=== PATIENT | male | born 1960 | race Caucasian/White ===

== ENCOUNTER 2020-12-05 15:10 | Inpatient (IN) | payer OTHER ==
[~2020-12-05] VITALS: Ht 167.6 cm; Wt 67.1 kg
[~2020-12-05 15:10] MED LIST: AUGMENTIN 875-1 EACH PO; IBUPROFEN800 MG PO; PRILOSEC OTC20 MG PO; TAMIFLU75 MG PO
[2020-12-05 16:50] LABS: HEMOGLOBIN 12.6 gm/dl (14.0-17.5); RED BLOOD COUNT 3.24 M/UL (4.20-5.50); WHITE BLOOD COUNT 13.1 K/UL (4.5-11.0)
[2020-12-05 17:36] LABS: BUN/CREATININE RATIO 23 (0-10)
[2020-12-05] MEDS ORDERED: FOLIC ACID1 MG PO (20:51)
[2020-12-05] MEDS ORDERED: SODIUM BICARBO650 M1 PO (20:52)
[2020-12-05] MEDS ORDERED: PROTONIX40 MG PO (20:52)
[2020-12-05] MEDS ORDERED: MAGNESIUM250 MG PO (20:53)
[2020-12-05] MEDS ORDERED: COMBIVENT RESPIM4 GM INH (21:00)
[2020-12-05 21:55] LABS: HEMOGLOBIN 12.6 gm/dl (14.0-17.5); RED BLOOD COUNT 3.23 M/UL (4.20-5.50); WHITE BLOOD COUNT 12.8 K/UL (4.5-11.0)
[2020-12-05 22:14] LABS: BUN/CREATININE RATIO 21 (0-10)
[2020-12-06 06:50] LABS: BUN/CREATININE RATIO 19 (0-10)
[2020-12-06] MEDS ORDERED: SYMBICORT 80-10.2 GM INH (09:09)
[2020-12-06] MEDS ORDERED: PROAIR HFA8.5 GM INH (09:11)
[2020-12-06] MEDS ORDERED: B-COMPLEX PLUS1 EAC1 PO (09:13)
[2020-12-06] MEDS ORDERED: NICODERM CQ1 EAC1 TOP (09:16)
[2020-12-06 18:00] LABS: BUN/CREATININE RATIO 15 (0-10)
[2020-12-06] MEDS ORDERED: METOPROLOL SUC100 MG PO (20:50)
[2020-12-06] MEDS ORDERED: PAXIL CR25 MG PO (20:50)
[2020-12-06] MEDS ORDERED: ELIQUIS5 MG PO (20:50)
[2020-12-06] MEDS ORDERED: POTASSIUM99 M1 PO (20:53)
[2020-12-06] MEDS ORDERED: SEROQUEL100 MG PO (20:53)
[2020-12-06] MEDS ORDERED: CALCIUM CARBON600 MG PO (20:54)
[2020-12-06] MEDS ORDERED: TRELEGY ELLIPT1 EACH INH (21:01)
[2020-12-07 04:39] LABS: HEMOGLOBIN 10.5 gm/dl (14.0-17.5); RED BLOOD COUNT 2.77 M/UL (4.20-5.50); WHITE BLOOD COUNT 6.6 K/UL (4.5-11.0)
[2020-12-07 04:53] LABS: BUN/CREATININE RATIO 15 (0-10)
--- NOTE | 2020-12-07 06:12 | NUR ---
0564 DR FERNÁNDEZ AWARE OF AM PHOS LEVEL. ORDERS RECEIVED, SEE SEP.
[2020-12-08 01:26] LABS: HEMOGLOBIN 11.6 gm/dl (14.0-17.5); RED BLOOD COUNT 3.03 M/UL (4.20-5.50); WHITE BLOOD COUNT 5.4 K/UL (4.5-11.0)
[2020-12-08 02:10] LABS: BUN/CREATININE RATIO 17 (0-10)
--- NOTE | 2020-12-08 03:13 | NUR ---
0310 DR MOORE AWARE OF PT AM PHOS LEVEL. ORDERS PLACED.
[2020-12-09 05:17] LABS: HEMOGLOBIN 11.8 gm/dl (14.0-17.5); RED BLOOD COUNT 3.07 M/UL (4.20-5.50); WHITE BLOOD COUNT 6.2 K/UL (4.5-11.0)
[2020-12-09 05:43] LABS: BUN/CREATININE RATIO 19 (0-10)
[2020-12-10 04:42] LABS: HEMOGLOBIN 12.5 gm/dl (14.0-17.5); RED BLOOD COUNT 3.27 M/UL (4.20-5.50); WHITE BLOOD COUNT 7.4 K/UL (4.5-11.0)
[2020-12-10 05:01] LABS: BUN/CREATININE RATIO 11 (0-10)
[2020-12-11 05:36] LABS: HEMOGLOBIN 12.2 gm/dl (14.0-17.5); RED BLOOD COUNT 3.21 M/UL (4.20-5.50)
[2020-12-11 06:05] LABS: BUN/CREATININE RATIO 6 (0-10)
[2020-12-12 04:12] LABS: RED BLOOD COUNT 3.42 M/UL (4.20-5.50); WHITE BLOOD COUNT 7.9 K/UL (4.5-11.0)
[2020-12-12 04:58] LABS: BUN/CREATININE RATIO 9 (0-10)
[2020-12-13 05:20] LABS: RED BLOOD COUNT 3.18 M/UL (4.20-5.50); WHITE BLOOD COUNT 6.5 K/UL (4.5-11.0)
[2020-12-13 05:51] LABS: BUN/CREATININE RATIO 8 (0-10)
[2020-12-13] MEDS ORDERED: IPRAT-ALBUT 0.5-3 ML NEB (17:20)
[2020-12-13] MEDS ORDERED: FERROUS SULFAT325 M2 PO (17:20)
[2020-12-13] MEDS ORDERED: FOLIC ACID 1 MG1 MG PO (17:20)
[2020-12-13] MEDS ORDERED: AMLODIPINE BESYL5 MG PO (17:20)
[2020-12-13] MEDS ORDERED: VITAMIN B-1100 M1 PO (17:20)
--- NOTE | 2020-12-13 23:26 | NUR ---
1948 report called to [place] RN at [facility]. 2015 Called EMS for ambulance request, paperwork faxed. [id number] Called EMS for updated ETA, reports "should be any minute." [id number] EMS at bedside. Bedside report given, all questions answered.
== END 2020-12-13 23:30 | disposition short-term general hospital (02) | DRG 432 ==
LOC: ER1 15:10 → CCU 18:28 → CDU 18:28 → CCU 19:06
PROVIDERS: Internal Medicine; Preventive Medicine Occupational Medicine; ADMIT Family Medicine
DX: K70.10 Alcoholic hepatitis without ascites (principal); K85.20 Alcohol induced acute pancreatitis without necrosis or infection; J96.01 Acute respiratory failure with hypoxia; G93.41 Metabolic encephalopathy; F10.139 Alcohol abuse with withdrawal, unspecified; I50.32 Chronic diastolic (congestive) heart failure; E87.2 Acidosis; E72.20 Disorder of urea cycle metabolism, unspecified; R65.10 Systemic inflammatory response syndrome (SIRS) of non-infectious origin without acute organ dysfunction; N47.2 Paraphimosis; F10.129 Alcohol abuse with intoxication, unspecified; I10 Essential (primary) hypertension; I25.2 Old myocardial infarction; E87.6 Hypokalemia; E83.39 Other disorders of phosphorus metabolism; D50.9 Iron deficiency anemia, unspecified; I12.9 Hypertensive chronic kidney disease with stage 1 through stage 4 chronic kidney disease, or unspecified chronic kidney disease; E78.5 Hyperlipidemia, unspecified; J44.9 Chronic obstructive pulmonary disease, unspecified; R74.01 Elevation of levels of liver transaminase levels; D69.6 Thrombocytopenia, unspecified; Z20.822 Contact with and (suspected) exposure to COVID-19; Z86.16 Personal history of COVID-19; Z87.01 Personal history of pneumonia (recurrent); Z86.711 Personal history of pulmonary embolism; Z79.01 Long term (current) use of anticoagulants; Z72.0 Tobacco use; Y90.8 Blood alcohol level of 240 mg/100 ml or more
CPT/HCPCS: 0240U; 36415; 36600; 70450; 71045; 80048; 80053; 80076; 80307; 81001; 82009; 82140; 82550; 82553; 82803; 83540; 83550; 83605; 83690; 83735; 83874; 83880; 84100; 84132; 84484; 85025; 85027; 85049; 85610; 85652; 85730; 86140; 87040; 87086; 87449; 92526; 92610; 93005; 94640; 94664; 94760; 96374; 96375; 99285; G0480; J0610; J0696; J1170; J1650; J2060; J2185; J2405; J3411; J3475; J3480; J7030; J7050

== ENCOUNTER 2021-01-13 16:06 | Emergency (ER) | payer OTHER ==
[~2021-01-13 16:06] MED LIST changes: +AMLODIPINE BESYL5 MG PO; +B-COMPLEX PLUS1 EAC1 PO; +CALCIUM CARBON600 MG PO; +COMBIVENT RESPIM4 GM INH; +ELIQUIS5 MG PO; +FERROUS SULFAT325 M2 PO; +FOLIC ACID 1 MG1 MG PO; +FOLIC ACID1 MG PO; +IPRAT-ALBUT 0.5-3 ML NEB; +MAGNESIUM250 MG PO; +METOPROLOL SUC100 MG PO; +NICODERM CQ1 EAC1 TOP; +PAXIL CR25 MG PO; +POTASSIUM99 M1 PO; +PROAIR HFA8.5 GM INH; +PROTONIX40 MG PO; +SEROQUEL100 MG PO; +SODIUM BICARBO650 M1 PO; +SYMBICORT 80-10.2 GM INH; +TRELEGY ELLIPT1 EACH INH; +VITAMIN B-1100 M1 PO
[2021-01-13 16:48] LABS: HEMOGLOBIN 12.3 gm/dl (14.0-17.5); RED BLOOD COUNT 3.31 M/UL (4.20-5.50); WHITE BLOOD COUNT 3.2 K/UL (4.5-11.0)
[2021-01-13 17:21] LABS: BUN/CREATININE RATIO 12 (0-10)
== END 2021-01-14 02:35 | disposition home or self-care (01) ==
LOC: ER1 16:06
DX: S82.64XA Nondisplaced fracture of lateral malleolus of right fibula, initial encounter for closed fracture (principal); S09.90XA Unspecified injury of head, initial encounter; S16.1XXA Strain of muscle, fascia and tendon at neck level, initial encounter; S40.011A Contusion of right shoulder, initial encounter; S70.01XA Contusion of right hip, initial encounter; S50.02XA Contusion of left elbow, initial encounter; S50.01XA Contusion of right elbow, initial encounter; R07.89 Other chest pain; J44.9 Chronic obstructive pulmonary disease, unspecified; I10 Essential (primary) hypertension; I25.2 Old myocardial infarction; F17.200 Nicotine dependence, unspecified, uncomplicated; Z86.711 Personal history of pulmonary embolism
CPT/HCPCS: 70450; 71045; 72125; 73030; 73080; 73502; 73610; 80053; 82550; 82553; 83690; 83874; 84484; 85025; 85379; 93005; 96374; 96375; 99285; C9113; G0480; J2060; J2405; J3411; J3475; J7030; Q9967

== ENCOUNTER 2021-01-20 07:37 | Inpatient (IN) | payer BC, OTHER ==
[~2021-01-20] VITALS: Ht 165.1 cm; Wt 70.3 kg
[2021-01-20 09:05] LABS: HEMOGLOBIN 11.9 gm/dl (14.0-17.5); RED BLOOD COUNT 3.28 M/UL (4.20-5.50); WHITE BLOOD COUNT 4.8 K/UL (4.5-11.0)
[2021-01-20 09:32] LABS: BUN/CREATININE RATIO 10 (0-10)
[2021-01-20] MEDS ORDERED: ZESTRIL5 MG PO (13:14)
[2021-01-20] MEDS ORDERED: PROTONIX40 MG PO (13:15)
[2021-01-20] MEDS ORDERED: CLARITIN10 MG PO (14:19)
[2021-01-20] MEDS ORDERED: ANTIVERT 12.512.5 MG PO (14:20)
[2021-01-20] MEDS ORDERED: NORVASC2.5 MG PO (14:21)
[2021-01-21 06:50] LABS: HEMOGLOBIN 11.1 gm/dl (14.0-17.5); RED BLOOD COUNT 3.04 M/UL (4.20-5.50)
[2021-01-21 07:37] LABS: BUN/CREATININE RATIO 9 (0-10)
[2021-01-22 07:21] LABS: BUN/CREATININE RATIO 8 (0-10)
[2021-01-23 03:40] LABS: HEMOGLOBIN 9.6 gm/dl (14.0-17.5); RED BLOOD COUNT 2.73 M/UL (4.20-5.50); WHITE BLOOD COUNT 2.9 K/UL (4.5-11.0)
[2021-01-23 04:07] LABS: BUN/CREATININE RATIO 6 (0-10)
[2021-01-24 05:28] LABS: HEMOGLOBIN 10.5 gm/dl (14.0-17.5); RED BLOOD COUNT 2.87 M/UL (4.20-5.50)
[2021-01-24 05:29] LABS: WHITE BLOOD COUNT 3.9 K/UL (4.5-11.0)
[2021-01-24 05:57] LABS: BUN/CREATININE RATIO 7 (0-10)
[2021-01-25 07:54] LABS: HEMOGLOBIN 10.3 gm/dl (14.0-17.5); RED BLOOD COUNT 2.93 M/UL (4.20-5.50)
[2021-01-25 07:55] LABS: WHITE BLOOD COUNT 5.7 K/UL (4.5-11.0)
[2021-01-25 08:31] LABS: BUN/CREATININE RATIO 12 (0-10)
[2021-01-28 06:01] LABS: BUN/CREATININE RATIO 13 (0-10)
[2021-01-30 06:25] LABS: HEMOGLOBIN 10.2 gm/dl (14.0-17.5); RED BLOOD COUNT 2.9 M/UL (4.20-5.50); WHITE BLOOD COUNT 6.5 K/UL (4.5-11.0)
--- NOTE | 2021-01-30 10:59 | NUR ---
01/29/21 1100 ALERT, ORIENTED AND COOPERATIVE AT THIS TIME, SITTING ON COUCH READING NEWSPAPER, NO SITTER REQUIRED CIWA PROTOCOL ENDED
--- NOTE | 2021-01-31 08:02 | NUR ---
01/27/21 PT ASSISTED TO BATHROOM BY PATENT DRAFTER. UPON ENTERING BATHROOM, PATENT DRAFTER LEFT PT TO PROVIDE PRIVACY. PT FELL INTO FLOOR AND PROCEEDED TO HAVE LARGE BM IN FLOOR. PT ASSESSED IN FLOOR BY [facility] STAFF. PT DENIED ANY PAIN, NO ABNORMALITIES NOTED. PT ASSISTED UP TO COMMODE AND CLEANED UP. PT ASSISTED X 2 BACK TO BED. AFTER RETURNING TO BED, PT STATED THAT HE HAD HIT HIS HEAD ON THE FLOOR DURING FALL. NOTIFIED AND MADE AWARE OF SITUATION. CT SCAN OF HEAD ORDERED. PT'S - BRENNA - WAS NOTIFIED. SHE STATED THAT HE FELL A LOT AT HOME AND NEEDED CONSTANT SUPERVISION.
[2021-02-02] MEDS ORDERED: B-1100 MG PO (16:37)
[2021-02-02] MEDS ORDERED: ELIQUIS 5 MG TAB5 MG PO (16:37)
== END 2021-02-02 17:11 | disposition home or self-care (01) | DRG 896 ==
LOC: ER1 07:37 → MED SURG 4 10:39 → CDU 10:39 → MED SURG 4 15:59 → CCU 01-22 02:56 → MED SURG 4 01-22 03:54 → CCU 01-23 16:48 → PROG CARE 01-24 15:09 → MED SURG 4 01-26 13:19
PROVIDERS: Internal Medicine; Physician Assistant; ADMIT Internal Medicine
DX: F10.131 Alcohol abuse with withdrawal delirium (principal); G93.41 Metabolic encephalopathy; E87.2 Acidosis; D61.818 Other pancytopenia; Z20.822 Contact with and (suspected) exposure to COVID-19; K86.1 Other chronic pancreatitis; R53.81 Other malaise; K76.0 Fatty (change of) liver, not elsewhere classified; F17.210 Nicotine dependence, cigarettes, uncomplicated; R00.0 Tachycardia, unspecified; R73.9 Hyperglycemia, unspecified; D53.9 Nutritional anemia, unspecified; R29.6 Repeated falls; E86.0 Dehydration; E87.6 Hypokalemia; E78.5 Hyperlipidemia, unspecified; D69.6 Thrombocytopenia, unspecified; Z86.16 Personal history of COVID-19; I25.2 Old myocardial infarction; Z80.9 Family history of malignant neoplasm, unspecified; Z82.49 Family history of ischemic heart disease and other diseases of the circulatory system
CPT/HCPCS: 0240U; 36415; 70450; 71045; 80048; 80053; 82550; 82553; 82607; 82746; 82800; 83036; 83690; 83735; 83874; 84132; 84484; 85025; 85610; 92526; 92610; 93005; 94640; 94760; 96374; 96376; 97110; 97110-GP-CQ; 97116; 97116-GP-CQ; 97163; 97167; 97530-GP-CQ; 97535; 99285; A6212; G0378; G0480; J2060; J3411; J3475; J3480; J3486; J7030

== ENCOUNTER 2021-03-03 21:21 | Emergency (ER) | payer BC, OTHER ==
[~2021-03-03 21:21] MED LIST changes: +ANTIVERT 12.512.5 MG PO; +B-1100 MG PO; +CLARITIN10 MG PO; +ELIQUIS 5 MG TAB5 MG PO; +NORVASC2.5 MG PO; +ZESTRIL5 MG PO
[2021-03-03 21:41] LABS: HEMOGLOBIN 12.5 gm/dl (14.0-17.5); RED BLOOD COUNT 3.76 M/UL (4.20-5.50); WHITE BLOOD COUNT 4.2 K/UL (4.5-11.0)
[2021-03-03 21:57] LABS: BUN/CREATININE RATIO 15 (0-10)
== END 2021-03-04 15:53 | disposition home or self-care (01) ==
LOC: ER1 21:21
PROVIDERS: Physician Assistant Medical
DX: F10.129 Alcohol abuse with intoxication, unspecified (principal); Y90.8 Blood alcohol level of 240 mg/100 ml or more; I51.9 Heart disease, unspecified; Z20.822 Contact with and (suspected) exposure to COVID-19
CPT/HCPCS: 71045; 80053; 82550; 82553; 83605; 83874; 84484; 85025; 93005; 96374; 96375; 99285; G0480; J2405; J3411; J3475; J7030; U0002